=== PATIENT | female | born 1940 | race Caucasian/White ===

== ENCOUNTER 2016-09-30 11:46 | Day surgery (SDC) | payer MEDICARE, OTHER ==
[~2016-09-30 11:46] MED LIST: Acetaminophen TAB* 325 MG PO PRN; Buffered Lidocaine 1% SYRIN* 3 ML/SYR SYRINGE INTRADERM ONE; Cyclopentolate 1% OPTH.SOL* 2 ML BTL ONE; Flurbiprofen 0.03% OPTH.SOL* 2.5 ML BTL ONE; Lidocaine 1% MPF* 2 ML VIAL ONE; Neomycin/Polymy/Dex OPHTH.OIN* 3.5 GM ONE; Phenylephrine 2.5% OPTH.SOL* 2 ML BTL ONE; Povidone Iodine 5% OPTH* 30 ML BTL ONE; Tetracaine 0.5% OPTH.SOL 4 ML* 1 DROP BTL ONE; acetaZOLAMIDE TAB* 250 MG ONE
[2016-09-30] MEDS ORDERED: Midazolam* 1 MG/ML 2 ML VIAL (2 MG) ONE ×2 (13:05→13:20)
[2016-09-30] MEDS ORDERED: fentaNYL* 50 MCG/ML 2 ML VIAL (100 MCG VIAL) ONE (13:05)
[2016-09-30] MEDS ORDERED: Artificial Tear OPHTH.OINT* 3.5 GM ONE (13:46)
[2016-09-30 13:57] VITALS: BP 112/67
--- NOTE | 2016-10-01 10:00 | OP ---
OPERATIVE REPORT: DATE OF OPERATION: 09/30/16 - [facility] DATE OF : 42 SURGEON: Yoandy Parks MD ANESTHESIOLOGIST: Edu Boswell MD ANESTHESIA: Monitored anesthesia care. PRE-OP DIAGNOSIS: Cataract of the right eye. POST-OP DIAGNOSIS: Cataract of the right eye. OPERATIVE PROCEDURE: Cataract extraction of the right eye. IMPLANTS: SN60WF 13.5 diopter lens to right eye. COMPLICATIONS: None. DESCRIPTION OF PROCEDURE: The patient was given phenylephrine 2.5% and cyclopentolate 1% eye drops to the operative eye in the preoperative area. The patient was brought to the operating room where a time-out was taken to identify the correct patient, site and side of surgery. The patient's right eye was prepped and draped in the usual sterile fashion with 5% Betadine. A second time-out was taken to verify the correct patient, site and side of surgery and correct lens selection. A lid speculum was placed to the right eye. A 1-mm paracentesis blade was used to make a clear corneal incision in the superotemporal position. Preservative-free 1% lidocaine was injected into the anterior chamber. DisCoVisc was then injected into the anterior chamber. A 2.75-mm Keratome blade was used to make a triplanar incision at the inferotemporal position. A cystotome was used to initiate a capsulorrhexis, which was completed with Utrata forceps in a continuous and curvilinear manner. Hydrodissection of the lens was then performed with BSS on a cannula. The lens could be spun in the capsular bag. The phacoemulsification handpiece was then used with [id number] technique to remove the nucleus in its entirety with 13.41 CDE. The I/A handpiece was then used to remove the residual cortical material. DisCoVisc was then injected to inflate the capsular bag. The planned SN60WF 13.5 diopter lens was then injected into the capsular bag. The residual DisCoVisc was then removed from the eye with the I/A handpiece. The corneal incisions were then hydrated and no leaks occurred at physiologic pressure around 20 mmHg per palpation. A lid speculum was then removed and drapes removed. Artificial tear ointment was then placed to the surface of the operative eye. An adhesive patch and shield were then placed on the operative eye. The patient was taken to the postoperative area in stable condition. [id number]/[facility] #: [id number] STEPHANIE
== END 2016-09-30 14:05 | disposition home or self-care (01) ==
LOC: OREAST 11:46
PROVIDERS: ATTEND Student in an Organized Health Care Education/Training Program
DX: H25.11 Age-related nuclear cataract, right eye (principal); I10 Essential (primary) hypertension; J45.20 Mild intermittent asthma, uncomplicated; Z79.51 Long term (current) use of inhaled steroids; Z79.899 Other long term (current) drug therapy
CPT/HCPCS: J2250; J3010; V2632

== ENCOUNTER 2016-10-14 06:44 | Day surgery (SDC) | payer MEDICARE, OTHER ==
[~2016-10-14 06:44] MED LIST changes: -Cyclopentolate 1% OPTH.SOL* 2 ML BTL ONE; -Flurbiprofen 0.03% OPTH.SOL* 2.5 ML BTL ONE; -Lidocaine 1% MPF* 2 ML VIAL ONE; -Neomycin/Polymy/Dex OPHTH.OIN* 3.5 GM ONE; -Phenylephrine 2.5% OPTH.SOL* 2 ML BTL ONE; -Povidone Iodine 5% OPTH* 30 ML BTL ONE; -Tetracaine 0.5% OPTH.SOL 4 ML* 1 DROP BTL ONE; -acetaZOLAMIDE TAB* 250 MG ONE
[2016-10-14] MEDS ORDERED: Midazolam* 1 MG/ML 2 ML VIAL (2 MG) ONE (07:28)
[2016-10-14] MEDS ORDERED: fentaNYL* 50 MCG/ML 2 ML VIAL (100 MCG VIAL) ONE (07:36)
[2016-10-14] MEDS ORDERED: Artificial Tears* 15 ML BTL ONE (08:00)
[2016-10-14] MEDS ORDERED: Artificial Tear OPHTH.OINT* 3.5 GM ONE ×2 (08:03→15:19)
[2016-10-14 08:44] VITALS: BP 129/73
[2016-10-14] MEDS ORDERED: Neomycin/Polymy/Dex OPHTH.OIN* 3.5 GM ONE (14:46)
[2016-10-14] MEDS ORDERED: Cyclopentolate 1% OPTH.SOL* 2 ML BTL ONE (14:46)
[2016-10-14] MEDS ORDERED: Flurbiprofen 0.03% OPTH.SOL* 2.5 ML BTL ONE (14:46)
[2016-10-14] MEDS ORDERED: Tropicamide 1% OPTH.SOL* BTL ONE (14:46)
[2016-10-14] MEDS ORDERED: Phenylephrine 2.5% OPTH.SOL* 2 ML BTL ONE (14:46)
[2016-10-14] MEDS ORDERED: Lidocaine 1% MPF* 2 ML VIAL ONE (14:46)
[2016-10-14] MEDS ORDERED: acetaZOLAMIDE TAB* 250 MG ONE (14:46)
[2016-10-14] MEDS ORDERED: Tetracaine 0.5% OPTH.SOL 4 ML* 1 DROP BTL ONE (14:46)
[2016-10-14] MEDS ORDERED: Povidone Iodine 5% OPTH* 30 ML BTL ONE (14:46)
--- NOTE | 2016-10-15 01:24 | OP ---
DATE OF OPERATION: 10/14/16 - [facility] DATE OF : 42 SURGEON: Yoandy Parks MD ANESTHESIOLOGIST: Dr. Frias ANESTHESIA: Monitored anesthesia care. PRE-OP DIAGNOSIS: Cataract, left eye. POST-OP DIAGNOSIS: Cataract, left eye with floppy iris syndrome. OPERATIVE PROCEDURE: Cataract extraction, left eye. IMPLANTS: SN60WF 13.5 diopter lens to the left eye. COMPLICATIONS: None. DESCRIPTION OF PROCEDURE: The patient was given phenylephrine 2.5% and cyclopentolate 1% eye drops to the operative eye in the preoperative area. The patient was brought to the operating room, where a time-out was taken to identify the correct patient, site and side of surgery. The patient's left eye was prepped and draped in the usual sterile fashion with 5% Betadine. A second time-out was taken to verify the correct patient, site and side of surgery, and correct lens selection. A lid speculum was placed in the left eye. A 1-mm paracentesis blade was used to make a clear corneal incision in the inferotemporal position. Preservative-free 1% lidocaine was injected into the anterior chamber. DisCoVisc was injected into the anterior chamber. A Malyugin ring was inserted for mechanical pupillary dilation due to poor pupillary dilation. A 2.75-mm keratome blade was used to make a triplanar incision at the superotemporal position. A cystotome was used to initiate a capsulorrhexis which was completed with Utrata forceps in a continuous and curvilinear manner. Hydrodissection of the lens was then performed with BSS on a cannula. The lens could be spun in the capsular bag. Phacoemulsification handpiece was then used with a divide and conquer technique to remove the nucleus in its entirety with 18.95 CDE. The I/A handpiece was then used to remove the residual cortical lens material. DisCoVisc was then injected to inflate the capsular bag. The planned SN60WF 13.5 diopter lens was then injected in the capsular bag. The Malyugin ring was then removed using a Huggins technique. The residual DisCoVisc was then removed from the eye with the I/A handpiece. The corneal incisions were then hydrated and no leaks occurred at physiologic pressure around 20 mmHg per palpation. The lid speculum was then removed and drapes removed. Preservative-free artificial tear ointment was then placed on the surface of the operative eye. An adhesive patch and shield were then placed in the operative eye. The patient was taken to the postoperative area in stable condition. [id number]/[facility] #: [id number] MTDD
== END 2016-10-14 08:54 | disposition home or self-care (01) ==
LOC: OREAST 06:44
PROVIDERS: ATTEND Student in an Organized Health Care Education/Training Program
DX: H25.12 Age-related nuclear cataract, left eye (principal); H21.81 Floppy iris syndrome; I10 Essential (primary) hypertension; J45.909 Unspecified asthma, uncomplicated; E78.5 Hyperlipidemia, unspecified; E04.1 Nontoxic single thyroid nodule
CPT/HCPCS: A9270-GY; J2250; J3010; V2632

== ENCOUNTER 2017-05-19 10:36 | Emergency (ER) | payer MEDICARE, OTHER ==
[2017-05-19 11:23] VITALS: BP 151/62
--- NOTE | 2017-05-19 11:51 | UC ---
Respiratory Complaint HPI - HPI Summary HPI Summary: 76 y/o female presents to the urgent c/o productive cough, mild wheezing for the past week. Pt reports she was at her PCP Dr Moore on and Dx with URI and she feels worse. She wa Rx Robiussin AC and it is not improving her symptoms. She requests ABX. Pt sttes mild fever at home. Pt denies SOB, chest pain, abdominal pain, Urinary symptoms, N/V/D - History of Current Complaint Chief Complaint: UCRespiratory Stated Complaint: RESP ISSUE Time Seen by Provider: 05/19/17 11:49 Hx Obtained From: Patient ?: No Onset/Duration: Gradual Onset, Lasting Weeks - 1 week, Worse Since - yesterday Timing: Intermittent Episodes Severity Initially: Mild Severity Currently: Moderate Pain Intensity: 0 Pain Scale Used: 0-10 Numeric Character: Cough: Productive, Sputum Description: - green Aggravating Factors: Deep Breaths, Recumbent Position Alleviating Factors: OTC Meds Associated Signs And Symptoms: Positive: Fever, Chills, URI, Nasal Congestion, Sinus Discomfort - Risk Factors Pulmonary Embolism Risk Factors: Negative Cardiac Risk Factors: Hypertension Pseudomonas Risk Factors: Negative Tuberculosis Risk Factors: Negative - Allergies/Home Medications Allergies/Adverse Reactions: Allergies Allergy/AdvReac Type Severity Reaction Status Date / Time Sulfa Drugs Allergy Severe Hives Verified 05/19/17 11:23 PMH/Surg Hx/FS Hx/Imm Hx Previously Healthy: Yes Cardiovascular History: Hypertension - Surgical History Surgical History: Yes Surgery Procedure, Year, and Place: lump from breast; arm & back cyst/skin lesion removed (benign); D&C - Family History Known Family History: Positive: Diabetes - Social History Occupation: Retired Lives: With Family Alcohol Use: None Substance Use Type: None Smoking Status (MU): Never Smoked Tobacco Review of Systems Constitutional: Fever - subjective at home, Chills Skin: Negative Eyes: Negative ENT: Nasal Discharge, Sinus Congestion, Sinus Pain/Tenderness Respiratory: Shortness Of Breath, Cough Cardiovascular: Negative Gastrointestinal: Negative Genitourinary: Negative Motor: Negative Neurovascular: Negative Musculoskeletal: Negative Neurological: Negative Psychological: Negative Is Patient Immunocompromised?: No All Other Systems Reviewed And Are Negative: Yes Physical Exam Triage Information Reviewed: Yes Vital Signs: Initial Vital Signs Temp 97.3 F 05/19/17 11:19 Pulse 68 05/19/17 11:19 Resp 18 05/19/17 11:19 BP 151/62 05/19/17 11:19 Pulse Ox 98 05/19/17 11:19 - Additional Comments Vital Signs Reviewed: Yes General: well developed, well nourished female sitting in the examining table w/ o any apparent distress Eyes: Positive: Conjunctiva Clear - PERRLA, EOMI, fundi grossly normal ENT: Positive: Normal ENT inspection, Hearing grossly normal, Pharynx normal, Nasal congestion - edematous and erythematous nasal mucosa, Nasal drainage - yellowish drainage, TMs normal. Negative: Tonsillar swelling, Tonsillar exudate Neck: Positive: Supple, Nontender, No Lymphadenopathy Respiratory: no orthopnea or dyspnea. Able to speak in full sentences, no retractions or accessory muscle use, no tripod position, stridor, or head bobbing. Left posterior upper lung with scattered rhonchi. no wheezing or rales. Cardiovascular: Positive: RRR, No Murmur, Pulses Normal, Brisk Capillary Refill Abdomen Description: Positive: Nontender, No Organomegaly, Soft. Negative: CVA Tenderness (R), CVA Tenderness (L) Bowel Sounds: Positive: Present Musculoskeletal Exam: Normal Musculoskeletal: Positive: Strength Intact, ROM Intact, No Edema Neurological Exam: Normal Psychological Exam: Normal Skin Exam: Normal UC Diagnostic Evaluation - Laboratory O2 Sat by Pulse Oximetry: 98 Respiratory Course/Dx - Course Course Of Treatment: 76 y/o female presents to the urgent c/o productive cough, mild wheezing for the past week. Pt reports she was at her PCP Dr Moore on and Dx with URI and she feels worse. She wa Rx Robiussin AC and it is not improving her symptoms. She requests ABX. Pt sttes mild fever at home. Pt denies SOB, chest pain, abdominal pain, Urinary symptoms, N/V/D. Hx obtained. Pt with scattered rhonchi on left posterior lung and moderates nasal congestion ans sinus tenderness on examination. Pt declined chest X-ray to r/o Pneumonia. Pt Rx Z-dorys PO and Flonase to alleviate symptoms. Pt advised to increase fluid intake and eat well continue with Robitussin AC for cough. Her BP is elevated today. Hx of HTn. Advised to decrease salt in her diet and monitor BP. if not improvement or worsening of symptoms to f/u with PCP for further management. pt understood and agreed with plan of care. Pt understood and agreed with D/C instructions - Differential Dx/Diagnosis Differential Diagnosis/HQI/PQRI: Asthma, Bronchitis, Exacerbation Of COPD, Influenza, Laryngitis, Lower Resp Infection, Sinusitis Provider Diagnoses: 1-Acute bronchitis. 2-Uncontrolled HTN Discharge - Discharge Plan Condition: Stable Disposition: HOME Prescriptions: Azithromyxin DORYS (NF) [Z-Dorys (Zithromax) 250 mg tabs #6] 2 tab PO .TODAY, THEN 1 DAILY #6 tab Fluticasone NASAL SPRAY 50MCG* [Flonase NASAL SPRAY 50MCG*] 2 spray BOTH NARES DAILY #1 btl Patient Education Materials: Acute Bronchitis (ED), Low Sodium Diet (ED) Referrals: Jairon Moore MD [Primary Care Provider] - 3 Days Additional Instructions: 1-Please take full course of antibiotic to avoid resistance. 2-Continue taking Robitussin PO tabs as directed and use the albuterol inhaler to alleviate cough. Increase fluid intake, rest and eat well. 3- If symptoms do not improve or worsen or your develop SOB with fever and severe wheezing please go immediately to the ER further evaluation and treatment. 4- F/u with your PCP in 2-3 days for further management if not improvement 5-Your BP is elevated today please decrease salt in your diet, monitor your BP and if it continued to be elevated please f/u with PCP for further management
== END 2017-05-19 12:18 | disposition home or self-care (01) ==
LOC: UCEAST 10:36
DX: J20.9 Acute bronchitis, unspecified (principal); I10 Essential (primary) hypertension; Z88.2 Allergy status to sulfonamides
CPT/HCPCS: 99212; G0463

== ENCOUNTER 2017-08-01 11:03 | Emergency (ER) | payer MEDICARE, OTHER ==
[2017-08-01 11:18] VITALS: BP 137/72
--- NOTE | 2017-08-01 11:37 | UC ---
Respiratory Complaint HPI - HPI Summary HPI Summary: PT WAS TREATED FOR PRESUMPTIVE FLU WITH TAMILFU. IS ON LAST DAY TODAY. PT HERE WITH PERSISTENT HARSH OCCASIONALLY PRODUCTIVE COUGH. NOT WHEEZY BUT SOMETIMES HAS FITS OF COUGHING THAT LEAVE HER FEELING SOB. REPORTS A H/O CHRONIC BRONCHITIS. STATES HER OTHER FLU SX HAVE ALL IMPROVED - NO MORE FEVER, NAUSEA OR ACHES. - History of Current Complaint Chief Complaint: UCRespiratory Stated Complaint: COUGH Time Seen by Provider: 08/01/17 11:24 Hx Obtained From: Patient Onset/Duration: Gradual Onset, Lasting Days, Still Present Timing: Constant Severity Initially: Moderate Severity Currently: Moderate Pain Intensity: 0 Pain Scale Used: 0-10 Numeric Character: Cough: Productive Aggravating Factors: Nothing Alleviating Factors: Nothing Associated Signs And Symptoms: Negative: Dyspnea, Fever, Chills, Wheezing, Nasal Congestion - Allergies/Home Medications Allergies/Adverse Reactions: Allergies Allergy/AdvReac Type Severity Reaction Status Date / Time Sulfa (Sulfonamide Allergy Hives Verified 08/01/17 11:13 Antibiotics) PMH/Surg Hx/FS Hx/Imm Hx Cardiovascular History: Hypertension Respiratory History: Bronchitis - Surgical History Surgical History: Yes Surgery Procedure, Year, and Place: lump from breast; arm & back cyst/skin lesion removed (benign); D&C - Family History Known Family History: Positive: Hypertension, Diabetes - Social History Alcohol Use: None Substance Use Type: None Smoking Status (MU): Never Smoked Tobacco Review of Systems Constitutional: Negative ENT: Negative Respiratory: Cough Cardiovascular: Negative Gastrointestinal: Negative All Other Systems Reviewed And Are Negative: Yes Physical Exam Triage Information Reviewed: Yes Appearance: Well-Appearing, No Pain Distress, Well-Nourished Vital Signs: Initial Vital Signs Temp 97.1 F 08/01/17 11:15 Pulse 68 08/01/17 11:15 Resp 16 08/01/17 11:15 BP 137/72 08/01/17 11:15 Pulse Ox 98 08/01/17 11:15 Vital Signs Reviewed: Yes Eyes: Positive: Conjunctiva Clear ENT: Positive: Hearing grossly normal, Pharynx normal, TMs normal Neck: Positive: Supple, Nontender, No Lymphadenopathy Respiratory: Positive: Lungs clear, Normal breath sounds, No respiratory distress, No accessory muscle use, Other: - RECURRENT HACKING COUGH DURING ENCOUNTER. Negative: Crackles, Wheezing Cardiovascular Exam: Normal Abdomen Description: Positive: Soft Musculoskeletal: Positive: No Edema Neurological: Positive: Alert Psychological: Positive: Age Appropriate Behavior Skin: Negative: rashes UC Diagnostic Evaluation - Laboratory O2 Sat by Pulse Oximetry: 98 Respiratory Course/Dx - Differential Dx/Diagnosis Provider Diagnoses: ACUTE BRONCHITIS Discharge - Discharge Plan Condition: Stable Disposition: HOME Prescriptions: Azithromyxin DORYS (NF) [Z-Dorys (Zithromax) 250 mg tabs #6] 2 tab PO .TODAY, THEN 1 DAILY #6 tab Codeine Phosphate/Guaifenesin [Codeine-Guaifen 10-100 mg/5 ml] 5 - 10 ml PO Q6H PRN #150 ml MDD 40ML PRN Reason: Cough Patient Education Materials: Acute Bronchitis (ED) Referrals: Jairon Moore MD [Primary Care Provider] - If Needed Additional Instructions: GIVEN YOUR H/O CHRONIC BRONCHITIS AND RECENT DIAGNOSIS OF FLU, WILL TREAT FOR POSSIBLE SECONDARY BACTERIAL INFECTION. ALSO CONSIDER THE POSSIBILITY OF POST INFECTIOUS COUGH THAT MAY LINGER FOR WEEKS AFTER YOU RECOVER FROM A RESPIRATORY INFECTION AND IS DUE TO AIRWAY HYPERREACTIVITY DUE TO RECENT ILLNESS. FOLLOW-UP WITH YOUR PCP IF YOU ARE NOT IMPROVING EXPECTED.
== END 2017-08-01 11:55 | disposition home or self-care (01) ==
LOC: UCEAST 11:03
DX: J20.9 Acute bronchitis, unspecified (principal); I10 Essential (primary) hypertension; Z88.2 Allergy status to sulfonamides
CPT/HCPCS: 99212; G0463

== ENCOUNTER 2018-02-19 19:01 | Emergency (ER) | payer MEDICARE, OTHER ==
[2018-02-19 19:21] VITALS: BP 141/82
--- NOTE | 2018-02-19 19:32 | UC ---
Knee Pain HPI - HPI Summary HPI Summary: 77 yo female presents accompanied by her friend with complaints of LEFT knee pain. She tells me that about a month ago her pain began, but has worsened since. She tells me that she saw her PCP, Dr. Ennis, about a week ago and an XR was performed and was normal - per pt. Today pt woke with worse pain that has persisted throughout the day with ambulation. Her pain is minimal if she elevated and puts a pillow under her knee. The pain is located behind the knee and radiates into her calf. She denies injury, numbness, tingling, recent travel , hx of cancer or blood clot. - History of Current Complaint Chief Complaint: UCLowerExtremity Stated Complaint: KNEE PAIN Time Seen by Provider: 02/19/18 19:29 Hx Obtained From: Patient Hx Last Menstrual Period: na Severity Initially: Moderate Severity Currently: Severe Pain Intensity: 9 Pain Scale Used: 0-10 Numeric - Allergies/Home Medications Allergies/Adverse Reactions: Allergies Allergy/AdvReac Type Severity Reaction Status Date / Time Sulfa (Sulfonamide Allergy Hives Verified 02/19/18 19:21 Antibiotics) PMH/Surg Hx/FS Hx/Imm Hx - Additional Past Medical History Additional PMH: Seasonal allergies Cardiovascular History: Hypertension - Surgical History Surgical History: Yes Surgery Procedure, Year, and Place: lump from breast; arm & back cyst/skin lesion removed (benign); D&C - Family History Known Family History: Positive: None, Hypertension, Diabetes - Social History Occupation: Retired Lives: Alone Alcohol Use: None Substance Use Type: None Smoking Status (MU): Never Smoked Tobacco Review of Systems Constitutional: Negative Skin: Negative Respiratory: Negative Cardiovascular: Negative Neurovascular: Negative Musculoskeletal: Other: - Left knee pain Neurological: Negative Psychological: Negative All Other Systems Reviewed And Are Negative: Yes Physical Exam - Summary Physical Exam Summary: GENERAL: NAD. WDWN. No pain distress. SKIN: No rashes, sores, lesions, or open wounds. CHEST: No accessory muscle use. Breathing comfortably and in no distress. CV: . Pulses intact popliteal, PT, and DP. Cap refill <2seconds MSK: LEFT knee: Moderate TTP posterior knee joint. FROM. Strength 5/5. No edema or obvious bony deformities. No patella apprehension. Negative Mirtha, A/P drawer, Alaina, and varus/valgus stress. No calf pain or edema. Negative jacqueline 's sign. No lagunas's cyst appreciated. NEURO: Alert. Sensations intact and symmetric B/L LEs PSYCH: Age appropriate behavior. Triage Information Reviewed: Yes Vital Signs: Initial Vital Signs Temp 98.0 F 02/19/18 19:16 Pulse 64 02/19/18 19:16 Resp 18 02/19/18 19:16 BP 141/82 02/19/18 19:16 Pulse Ox 98 02/19/18 19:16 Vital Signs Reviewed: Yes Knee Pain Course/Dx - Course Course Of Treatment: No XR performed today as pain has been going on for about a month and pt had a negative XR about a week ago without new injury. I suspect she may have a lagunas's cyst, a ruptured cyst, or pain due to arthritis. She cannot take NSAIDs due to her HTN, therefore we discussed potential medication options in addition to an Orthopedic referral. She elected to try Tylenol #3. Advised to RICE and f/u with Orthopedics as soon as possible - Differential Dx/Diagnosis Provider Diagnoses: Left knee pain Discharge - Sign-Out/Discharge Documenting (check all that apply): Patient Departure All imaging exams completed and their final reports reviewed: No Studies - Discharge Plan Condition: Stable Disposition: HOME Prescriptions: Acetaminophen with Codeine [Acetaminophen/Codeine Evelin 300-30 mg] 1 tab PO BID PRN #8 tab MDD 2 PRN Reason: Pain Patient Education Materials: Acetaminophen/Codeine (By mouth), Bakers Cyst (ED) Referrals: Kia Martinez MD [Primary Care Provider] - Sully Ellis MD [Medical Doctor] - As Soon As Possible Additional Instructions: If you develop a fever, shortness of breath, chest pain, new or worsening symptoms - please call your PCP or go to the ED. Your blood pressure was mildly elevated at todays visit. Please see your primary provider within 4 weeks for recheck and re-evaluation. 1) Rest, Ice, and elevate your knee as much as possible 2) Please call Orthopedics at the number below to schedule a follow up appointment as soon as possible - Billing Disposition and Condition Condition: STABLE Disposition: Home - Attestation Statements Provider Attestation: Per institutional requirements, I have reviewed the chart, however, I was not consulted specifically or made aware of this patient by the midlevel provider. I did not personally evaluate, interact with , or disposition this patient
== END 2018-02-19 20:05 | disposition home or self-care (01) ==
LOC: UCEAST 19:01
DX: M25.562 Pain in left knee (principal); Z88.2 Allergy status to sulfonamides
CPT/HCPCS: 99212; G0463

== ENCOUNTER 2019-06-12 08:00 | Emergency (ER) | payer MEDICARE, OTHER ==
--- OUTSIDE RECORDS SUMMARY | 2019-06-12 08:05 | XMS REPORT | Continuity of Care Document ---
:1940 External Reference #:[id number] Author Name Romie Pack MD Address [address] [place] [address] Problems Active Problems Provider Date Impaired fasting glycaemia Onset: 11/04/2018 Chronic kidney disease Onset: 11/04/2018 Essential hypertension Onset: 08/18/2018 Osteoarthritis of left knee joint Onset: 01/26/2018 Multinodular goiter Onset: 01/26/2018 Hypertensive disorder Onset: 01/26/2018 Inactive Problems Benign essential hypertension Onset: 01/29/2019 Inactive: 01/29/2019 Body mass index 25-29 - overweight Onset: 01/29/2019 Inactive: 01/29/2019 Adult health examination Onset: 01/29/2019 Inactive: 01/29/2019 Social History Type Date Description Comments Sex Unknown Allergies, Adverse Reactions, Alerts Active Allergies Reaction Severity Comments Date Sulfa No Reaction Indicated 02/19/2019 Medications Active Medications SIG Qnty Indications Ordering Date Provider Atorvastatin Calcium 1 daily oral 90tabs BOBBY Omer 01/29/2019 20mg Tablets Proair HFA 2 puffs every 6 8.5units Magali Wineholt, 02/17/2018 hours inhalation 108(90Base) mcg/Act Aerosol Amlodipine Besylate 1 daily oral 90tabs Magali Wineholt, 02/17/2018 MD 2.5mg Tablets Flovent HFA 2 puffs twice 10.6units Magali Wineholt, 02/17/2018 44mcg/Act daily inhalation MD Aerosol Lisinopril-Hydrochlo 1 daily oral 90tabs Magali Wineholt, 02/17/2018 rothiazide 20-12.5mg Tablets Glucosamine 1 twice each day 60caps Magali Wineholt, 01/26/2018 500mg oral MD Capsules Medications Administered in Office Medication SIG Qnty Indications Ordering Provider Date TB Intradermal Test Unknown 02/02/2018 Injection Immunizations CPT Code Status Date Vaccine Lot # [id number] Given 03/19/2019 Flu High Dose [id number] 83150 Given 03/30/2018 Influenza Virus Vaccine, Quadrivalent, Split, Im Use 0.25ML 18840 Given 03/30/2018 Influenza Virus Vaccine, Quadrivalent, Split, Im Use 0.25ML 29426 Given 03/30/2018 Influenza Virus Vaccine, Quadrivalent, Split, Im Use 0.25ML 76885 Given 03/30/2018 Flu < 65 years 29684 Given 03/30/2018 Influenza Virus Vaccine, Quadrivalent, Split, Preservative Free 87167 Given 03/30/2018 Flumist 72586 Given 03/30/2018 Flu High Dose 82553 Given 03/30/2018 Influenza Virus Vaccine, Split, Preserv Free, Intradermal Use 18246 Given 08/06/2017 Tdap - Boostrix/Adacel 49603 Given 08/06/2017 Tdap - Boostrix/Adacel 94220 Given 08/06/2017 Tdap - Boostrix/Adacel 54202 Given 05/27/2016 Influenza Virus Vaccine, Split, Preserv Free, Intradermal Use 04679 Given 05/27/2016 Flu High Dose 82445 Given 05/27/2016 Flumist 99417 Given 05/27/2016 Influenza Virus Vaccine, Quadrivalent, Split, Preservative Free 91624 Given 05/27/2016 Flu < 65 years 26999 Given 05/27/2016 Influenza Virus Vaccine, Quadrivalent, Split, Im Use 0.25ML 57795 Given 05/27/2016 Influenza Virus Vaccine, Quadrivalent, Split, Im Use 0.25ML 01602 Given 05/27/2016 Influenza Virus Vaccine, Quadrivalent, Split, Im Use 0.25ML 63508 Given 12/07/2015 Prevnar 13 71799 Given 10/17/2014 Pneumovax - for >=2years - PPSV23 30292 Given 03/10/2014 Influenza Virus Vaccine, Split, Preserv Free, Intradermal Use 17726 Given 03/10/2014 Flu High Dose 29327 Given 03/10/2014 Flumist 89898 Given 03/10/2014 Influenza Virus Vaccine, Quadrivalent, Split, Preservative Free 36765 Given 03/10/2014 Flu < 65 years 52290 Given 03/10/2014 Influenza Virus Vaccine, Quadrivalent, Split, Im Use 0.25ML 06747 Given 03/10/2014 Influenza Virus Vaccine, Quadrivalent, Split, Im Use 0.25ML 88309 Given 03/10/2014 Influenza Virus Vaccine, Quadrivalent, Split, Im Use 0.25ML 40571 Given 04/03/2010 Influenza Virus Vaccine, Quadrivalent, Split, Im Use 0.25ML 18658 Given 04/03/2010 Influenza Virus Vaccine, Quadrivalent, Split, Im Use 0.25ML 10410 Given 04/03/2010 Influenza Virus Vaccine, Quadrivalent, Split, Im Use 0.25ML 07269 Given 04/03/2010 Flu < 65 years 67365 Given 04/03/2010 Influenza Virus Vaccine, Quadrivalent, Split, Preservative Free 87873 Given 04/03/2010 Flumist 21021 Given 04/03/2010 Flu High Dose 18183 Given 04/03/2010 Influenza Virus Vaccine, Split, Preserv Free, Intradermal Use 38864 Given 07/22/2007 Pneumovax - for >=2years - PPSV23 Vital Signs Date Vital Result Comment 05/07/2019 3:58pm Height 66.75 inches 5'6.75" Weight 190.00 lb Heart Rate 84 /min Body Temperature 98.2 F O2 % BldC Oximetry 97 % BMI (Body Mass Index) 30.0 kg/m2 01/29/2019 10:46am BP Systolic 140 mmHg Weight 187.00 lb Heart Rate 72 /min Body Temperature 97.7 F O2 % BldC Oximetry 96 % Results Test Acquired Facility Test Result H/L Range Note Date Creat, Ur Random 01/29/2019 N2N/CCD Import Creat, Ur Random 100 _ Microalb/CR Ratio 01/29/2019 N2N/CCD Import Microalb/CR Ratio <30 Microalbumin, Ur 01/29/2019 N2N/CCD Import Microalbumin, Ur 10 _ Microalbumin 01/29/2019 N2N/CCD Import Microalbumin Normal Interpretation Interpretation Mily 01/29/2019 N2N/CCD Import Mily 01/29/19 Procedures Date Code Description Status 05/07/2019 31836 Electrocardiogram Complete Completed Medical Devices Description No Information Available Encounters Type Date Location Provider Dx Diagnosis Office Visit 05/07/2019 [facility] Romie Pack MD Z01.818 Encounter for other 3:45p preprocedural examination M79.642 Pain in left hand R94.31 Abnormal electrocardiogram [ECG] [EKG] Assessments Date Code Description Provider 05/07/2019 Z01.818 Encounter for other preprocedural examination Romie Pack MD 05/07/2019 M79.642 Pain in left hand Romie Pack MD 05/07/2019 R94.31 Abnormal electrocardiogram [ECG] [EKG] Romie Pack MD 03/19/2019 Z23 Encounter for immunization Magali Granda MD Plan of Treatment No Information Available Functional Status Description No Information Available Mental Status Description No Information Available Referrals Refer to Reason for Referral Status Appt Date Dianna Boswell Preop for L hand surgery, general anesthesia, EKG Created 00 with poss inferior infarct Surgery scheduled for May 18 but will likely be rescheduled bc not urgent [address], [place] [address] [phone]
--- OUTSIDE RECORDS SUMMARY | 2019-06-12 08:05 | XMS REPORT | Continuity of Care Document ---
:1940 External Reference #:[id number] Author Name Marquis Kraus DO FACC (transmitted by agent of provider Tigist Saez) Address [address] [place] [address] Care Team Providers Name Role Phone Magali Granda M.D. - Family Care Team Information Oyster Preparer [phone] Medicine Problems Active Problems Provider Date Mild intermittent asthma Jairon Moore M.D.,FACP Onset: 06/26/2015 Note: confirmed on PFTs. Essential hypertension Jairon Moore M.D.,FACP Onset: 06/28/2009 Chronic allergic conjunctivitis Varsha Rodgers, N.P. Onset: 11/06/2011 Mixed hyperlipidemia Rosemary Diaz, N.P. Onset: 08/31/2013 Polyp of corpus uteri Jairon Moore M.D.,FACP Onset: 12/07/2015 Note: has IUD to suppress Thyroid nodule Jairon Moore M.D.,FACP Onset: 01/03/2016 Note: RT neg bx Dr. Stone 2015 Current tear of medial cartilage AND/OR meniscus Sully Ellis M.D. Onset: of knee Localized, primary osteoarthritis Sully Ellis M.D. Onset: 02/23/2018 Social History Type Date Description Comments Sex Unknown Tobacco Use Start: Unknown Never Smoked Cigarettes ETOH Use 12/18/2016 Denies alcohol use Recreational Drug Use Denies Drug Use Tobacco Use Start: Unknown Patient has never smoked Smoking Status Reviewed: 05/27/19 Patient has never smoked Exercise Type/Frequency Does not exercise Allergies, Adverse Reactions, Alerts Active Allergies Reaction Severity Comments Date Sulfa Antibiotics 08/13/2012 Medications Active Medications SIG Qnty Indications Ordering Date Provider Amlodipine Besylate 1 by mouth every 90tabs I10 Jairon Nieves 12/23/2017 day Zulma Moore,DALLINP 2.5mg Tablets Fluticasone 1 act each nostril 16gm Other Ordering 08/06/2017 Propionate twice daily Provider 50mcg/Act Suspension Guaifenesin-Codeine take 10 118ml R05 Jimmy Wrightk, 08/06/2017 milliliters by CRAWLER TRACTOR OPERATOR 100-10mg/5ML mouth every Solution evening with plenty of water as needed for cough for 7 days as needed Triamcinolone apply every day as 80gm Jairon Nieves 12/18/2016 Acetonide needed Zulma Moore,KRISTY 0.1% Cream Flovent HFA 2 puffs twice a 10.600gm R05 Jimmy Luis, 12/07/2015 44mcg/Act day CRAWLER TRACTOR OPERATOR Aerosol J45.41 Proair HFA 2 puffs by mouth 1units J20.9 Matthiascinthia Luis, CRAWLER TRACTOR OPERATOR 04/07/2015 108(90Base) every 4 hours as mcg/Act Aerosol needed J45.41 Lisinopril-Hydrochlorothiazide take 1 90tabs Jairon Nieves 11/05/2012 20-12.5mg Tablets tablet by Zulma oMore,FACP mouth once daily Flaxseed Oil [place]-3 1 cap po qd Jairon Nieves 08/02/2011 1000mg Capsules Zulma Moore,FACP Meclizine HCL 1 po every 8 270tabs Unknown 25mg Tablets hrs prn Zyrtec Allergy 1 by mouth Unknown 10mg Tablets every day Fish Oil 1000mg 2 by mouth Unknown Capsules DR twice a day Radha-C Tablets daily Unknown Glucosamine 500mg 2 caps by Unknown Capsules mouth three times a day Atorvastatin Calcium take 1 Unknown 20mg Tablets tablet by mouth once daily Medications Administered in Office Medication SIG Qnty Indications Ordering Provider Date Celestone 3 mg and 3mg Prabhakar St MD 03/24/2019 Injection Hyaluron Or Sully Ellis M.D. 08/21/2018 Derivative,Orthovisc,For Intra-Articular Inj Per Dose Injection Hyaluron Or Sully Ellis M.D. 08/14/2018 Monisha,Orthovisc,For Intra-Articular Inj Per Dose Injection Hyaluron Or Sully Ellis M.D. 08/07/2018 Derivative,Orthovisc,For Intra-Articular Inj Per Dose Injection Depomedrol 40MG Sully Ellis M.D. 02/23/2018 Injection PPD Rosemary Diaz N.P. 08/02/2011 Injection Influenza Virus Vaccine Unknown 06/16/2011 Injection Immunizations CPT Code Status Date Vaccine Reaction Lot # [id number] Given 08/06/2017 Tdap - [id number] Tetanus/Diptheria/Acellular Pertussis 69841 Given 03/27/2016 Influ Virus Vaccine, Quadrivalent, Split Virus, [place] [address] Given 12/07/2015 Pneumococcal Conjugate Vaccine [id number] 13 Valent For Intramuscular Use 48638 Given 03/30/2015 Flu Vaccine Split Virus Preservative Free For Indiv 3Yr Older 76892 Given 10/17/2014 Pneumonia Vaccine no reaction noted [id number] 59881 Given 03/10/2014 Influenza Virus Vaccine, [id number] Quadrivalent, Split, Preservative Free 03264 Given 04/29/2013 Flu Vaccine Split Virus [id number] Preservative Free For Indiv 3Yr Older 80297 Given 04/03/2010 Influenza Virus 3Yrs & Over [id number] 53938 Given 05/04/2008 Influenza Virus 3Yrs & Over 22840 Given 05/04/2008 Influenza Virus 3Yrs & Over 10055 26682 Given 07/22/2007 Pneumovax (History By Patient) 12956 Given 05/22/2007 Influenza Virus 3Yrs & Over 95331 Given 05/22/2007 Influenza Virus 3Yrs & Over 75951 Refused 12/20/2014 Tdap - Tetanus/Diptheria/Acellular Pertussis Vital Signs Date Vital Result Comment 05/27/2019 4:03pm Height 68 inches 5'8" Weight 189.00 lb with shoes BP Systolic 144 mmHg Rue reg cuff BP Diastolic 82 mmHg Rue reg cuff BP Systolic Sitting 138 mmHg Lue reg cuff BP Diastolic Sitting 80 mmHg Lue reg cuff BP Systolic Standing 142 mmHg Lue reg cuff BP Diastolic Standing 76 mmHg Lue reg cuff Respiratory Rate 16 /min BMI (Body Mass Index) 28.7 kg/m2 03/24/2019 9:47am Height 68 inches 5'8" Weight 191.25 lb Heart Rate 68 /min BP Systolic 124 mmHg BP Diastolic 66 mmHg Respiratory Rate 16 /min Body Temperature 97.4 F Pain Level 5 BMI (Body Mass Index) 29.1 kg/m2 Results Description No Information Available Procedures Date Code Description Status 05/27/2019 60385 EKG Tracing & Interpretation Completed 03/24/2019 48117 Inject/Drain Joint/Bursa Small W/O US Completed 01/15/2004 51279138 Colonoscopy Completed Medical Devices Description No Information Available Encounters Type Date Location Provider Dx Diagnosis Office Visit 05/04/[address] [facility] [address], M19.042 Primary 1:45p at [place] osteoarthritis, left hand Office Visit 03/24/[address] [facility] [address] M19.041 Primary 9:00a at [place] osteoarthritis, right hand M19.042 Primary osteoarthritis, left hand Assessments Date Code Description Provider 05/27/2019 Z01.810 Encounter for preprocedural Marquis Kraus DO [facility] cardiovascular examination 05/27/2019 R94.31 Abnormal electrocardiogram [ECG] [EKG] Marquis Kraus, DO FAC 05/27/2019 I10 Essential (primary) hypertension Marquis Kraus, DO FAC 05/27/2019 E78.5 Hyperlipidemia, unspecified Marquis Kraus, DO FAC 05/27/2019 R73.01 Impaired fasting glucose Marquis Kraus DO FACC 05/27/2019 R06.02 Shortness of breath Marquis Kraus DO FAC 05/04/2019 M19.042 Primary osteoarthritis, left hand [facility]akar [facility] MD 03/24/2019 M19.041 Primary osteoarthritis, right hand [facility]akar [facility] MD 03/24/2019 M19.042 Primary osteoarthritis, left hand [facility]abhakar [facility] MD Plan of Treatment Future Appointment(s):06/03/2019 1:00 pm - [facility] ECHO Schedule at [place] [facility]06/17/2019 11:00 am - Marquis Kraus DO FACC at [place] [facility]05/27/2019 - [facility] Encounter for preprocedural cardiovascular examinationComments:Take all of your medications as regular the night before and day of stress test including any inhalers. Bring your rescue inhaler in case you need it.Follow up:PRNR94.31 Abnormal electrocardiogram [ECG] [EKG]New Orders:Stress Test, Exercise Nuclear, Scheduled : 06/17/19I10 Essential (primary) fcrooqsefqtxH90.5 Hyperlipidemia, tcdjhylmrhzH50.01 Impaired fasting joauwjsJ41.02 Shortness of breathNew Orders: Echocardiogram, Scheduled: 06/03/19 Functional Status Description No Information Available Mental Status Description No Information Available Referrals Description No Information Available
--- OUTSIDE RECORDS SUMMARY | 2019-06-12 08:05 | XMS REPORT | Continuity of Care Document ---
:1940 External Reference #:[id number] Author Name Prabhakar St MD (transmitted by agent of provider Callie Viera) Address [address] [place] [id number] Care Team Providers Name Role Phone Magali Granda M.D. - Family Care Team Information Environmental Lawyer [phone] Medicine Problems Active Problems Provider Date Mild intermittent asthma Jairon Moore M.D.,[facility] Onset: 06/26/2015 Note: confirmed on PFTs. Essential [...] Patient has never smoked Smoking Status Reviewed: 05/04/19 Patient has never smoked Allergies, Adverse Reactions, Alerts Active Allergies Reaction Severity Comments Date Sulfa Antibiotics 08/13/2012 Medications Active Medications SIG Qnty Indications Ordering Date Provider Amlodipine Besylate 1 by mouth every 90tabs I10 Jairon Nieves 12/23/2017 day Zulma Moore,FACP 2.5mg Tablets Fluticasone 1 act each nostril 16gm Other Ordering 08/06/2017 Propionate twice daily Provider 50mcg/Act Suspension Guaifenesin-Codeine take 10 118ml R05 Jimmy Wrightk, 08/06/2017 milliliters by JOINT SEALER 100-10mg/5ML mouth every Solution evening with plenty of water as needed for cough for 7 days as needed Triamcinolone apply every day as 80gm Jairon Nieves 12/18/2016 Acetonide needed Zulma Moore,KRISTY 0.1% Cream Flovent HFA 2 puffs twice a 10.600gm R05 Sammydell Luis, 12/07/2015 44mcg/Act day JOINT SEALER Aerosol J45.41 Proair HFA 2 puffs by mouth 1units J20.9 Jimmy Smith, JOINT SEALER 04/07/2015 108(90Base) every 4 hours as mcg/Act Aerosol needed J45.41 Lisinopril-Hydrochlorothiazide take 1 90tabs Jairon Nieves 11/05/2012 20-12.5mg Tablets tablet by Zulma Moore,FACP mouth once daily Flaxseed Oil [place]-3 1 cap po qd Jairon Nieves 08/02/2011 [...] Injection Hyaluron Or Sully Ellis M.D. 08/07/2018 Monisha,Orthovisc,For Intra-Articular Inj Per Dose Injection Depomedrol 40MG Sully Ellis M.D. 02/23/2018 Injection PPD Rosemary Diaz, N.P. 08/02/2011 Injection Influenza Virus Vaccine Unknown 06/16/2011 Injection Immunizations CPT Code Status Date Vaccine Reaction Lot # [id number] Given 08/06/2017 Tdap - [id number] Tetanus/Diptheria/Acellular Pertussis 00447 Given 03/27/2016 Influ Virus Vaccine, Quadrivalent, Split Virus, [place] [address] Given 12/07/2015 Pneumococcal Conjugate Vaccine [id number] 13 Valent For Intramuscular Use 11518 Given 03/30/2015 Flu Vaccine Split Virus Preservative Free For Indiv 3Yr Older 52497 Given 10/17/2014 Pneumonia Vaccine no reaction noted [id number] 85934 Given 03/10/2014 Influenza Virus Vaccine, [id number] Quadrivalent, Split, Preservative Free 25279 Given 04/29/2013 Flu Vaccine Split Virus [id number] Preservative Free For Indiv 3Yr Older 85679 Given 04/03/2010 Influenza Virus 3Yrs & Over [id number] 26550 Given 05/04/2008 Influenza Virus 3Yrs & Over 83309 Given 05/04/2008 Influenza Virus 3Yrs & Over 60738 96505 Given 07/22/2007 Pneumovax (History By Patient) 49465 Given 05/22/2007 Influenza Virus 3Yrs & Over 61156 Given 05/22/2007 Influenza Virus 3Yrs & Over 82603 Refused 12/20/2014 Tdap - Tetanus/Diptheria/Acellular Pertussis Vital Signs Date Vital Result Comment 03/24/2019 9:47am Height 68 inches 5'8" Weight 191.25 lb Heart Rate 68 /min BP Systolic 124 mmHg BP Diastolic 66 mmHg Respiratory Rate 16 /min Body Temperature 97.4 F Pain Level 5 BMI (Body Mass Index) 29.1 kg/m2 08/21/2018 8:32am Height 68 inches 5'8" Weight 180.00 lb BP Systolic 117 mmHg BP Diastolic 69 mmHg Respiratory Rate 16 /min Pain Level 4 BMI (Body Mass Index) 27.4 kg/m2 Results Description No Information Available Procedures Date Code Description Status 03/24/2019 72104 Inject/Drain Joint/Bursa Small W/O US Completed 01/15/2004 69502068 Colonoscopy Completed Medical Devices Description No Information Available Encounters Type Date Location Provider Dx Diagnosis Office Visit 03/24/2019 [facility] [address], M19.041 Primary 9:00a at [place] osteoarthritis, right hand M19.042 Primary osteoarthritis, left hand Assessments Date Code Description Provider 05/04/2019 M19.042 Primary osteoarthritis, left hand [facility]abhakar [facility] MD 03/24/2019 M19.041 Primary osteoarthritis, right hand [facility]abhakar [facility] MD 03/24/2019 M19.042 Primary osteoarthritis, left hand Prabhakar [facility] MD Plan of Treatment 05/04/2019 - Prabhakar [facility] MDM19.042 Primary osteoarthritis, left handFollow up:Follow up: 7-10 days before surgery Functional Status Description No Information Available Mental Status Description No Information Available Referrals Description No Information Available
--- OUTSIDE RECORDS SUMMARY | 2019-06-12 08:05 | XMS REPORT | Continuity of Care Document ---
:1940 External Reference #:[id number] Author Name Aliza Ma Care Team Providers Name Role Phone Magali Granda M.D. - Family Care Team Information Market Development Specialist Medicine Problems Active Problems Provider Date Mild intermittent asthma Jairon Moore M.D.,[facility] Onset: 06/26/2015 Note: confirmed on PFTs. Essential [...] 118ml R05 Jimmy Wrightk, 08/06/2017 milliliters by FIRE PREVENTION FORESTER 100-10mg/5ML mouth every Solution evening with plenty of water as needed for cough for 7 days as needed Triamcinolone apply every day as 80gm Jairon Nieves 12/18/2016 Acetonide needed Zulma Moore,KRISTY 0.1% Cream Flovent HFA 2 puffs twice a 10.600gm R05 Jimmy Smith, 12/07/2015 44mcg/Act day FIRE PREVENTION FORESTER Aerosol J45.41 Proair HFA 2 puffs by mouth 1units J20.9 Matthiasmeghnadell Luis, FIRE PREVENTION FORESTER 04/07/2015 108(90Base) every 4 hours as mcg/Act Aerosol needed J45.41 Lisinopril-Hydrochlorothiazide take 1 90tabs Jairon Nieves 11/05/2012 20-12.5mg Tablets tablet by Zulma Moore,FACP mouth once daily Flaxseed Oil [place]-3 1 cap po qd Jairon Nieves 08/02/2011 [...] and 3mg Prabh[address]ar [facility] MD 03/24/2019 Injection Suzie Or Sully Ellis M.D. 08/21/2018 Mon[facility],For [facility]j Per Dose Injection Hyaluron Or Sully Ellis M.D. 08/14/2018 Monisha,Orthovisc,For Intra-Articular Inj Per Dose Injection Hyaluron Or Sully Ellis M.D. 08/07/2018 Derivative,Orthovisc,For Intra-Articular Inj Per Dose Injection Depomedrol 40MG Sully Ellis M.D. 02/23/2018 Injection PPD Rosemary Diaz N.Ivet 08/02/2011 Injection Influenza Virus Vaccine Unknown 06/16/2011 Injection Immunizations CPT Code Status Date Vaccine Reaction Lot # [id number] Given 08/06/2017 Tdap - [id number] Tetanus/Diptheria/Acellular Pertussis 62800 Given 03/27/2016 Influ Virus Vaccine, Quadrivalent, Split Virus, [place] [address] Given 12/07/2015 Pneumococcal Conjugate Vaccine [id number] 13 Valent For Intramuscular Use 40665 Given 03/30/2015 Flu Vaccine Split Virus Preservative Free For Indiv 3Yr Older 00600 Given 10/17/2014 Pneumonia Vaccine no reaction noted [id number] 14753 Given 03/10/2014 Influenza Virus Vaccine, [id number] Quadrivalent, Split, Preservative Free 41916 Given 04/29/2013 Flu Vaccine Split Virus [id number] Preservative Free For Indiv 3Yr Older 58500 Given 04/03/2010 Influenza Virus 3Yrs & Over [id number] 10963 Given 05/04/2008 Influenza Virus 3Yrs & Over 97876 Given 05/04/2008 Influenza Virus 3Yrs & Over 50042 29797 Given 07/22/2007 Pneumovax (History By Patient) 58015 Given 05/22/2007 Influenza Virus 3Yrs & Over 22155 Given 05/22/2007 Influenza Virus 3Yrs & Over 57769 Refused 12/20/2014 Tdap - Tetanus/Diptheria/Acellular Pertussis Vital [...] Available Procedures Date Code Description Status 03/24/2019 54406 Inject/Drain Joint/Bursa Small W/O US Completed 01/15/2004 [id number] Colonoscopy Completed Medical Devices Description No Information Available Encounters Type Date Location Provider Dx Diagnosis Office Visit 03/24/[address] [facility] [address], M19.041 Primary 9:00a at [place] osteoarthritis, right hand M19.042 Primary osteoarthritis, left hand Assessments Date Code Description Provider 05/04/2019 M19.042 Primary osteoarthritis, left hand [facility]abhakar [facility] MD 03/24/2019 M19.041 Primary osteoarthritis, right hand [facility]abhakar [facility] MD 03/24/2019 M19.042 Primary osteoarthritis, left hand [facility]abhakar [facility] MD Plan of Treatment 05/04/2019 - [facility]ab[facility], MDM19.042 Primary osteoarthritis, left handFollow up:Follow up: 7-10 days before surgery Functional Status Description No Information Available Mental Status Description No Information Available Referrals Description No Information Available
--- OUTSIDE RECORDS SUMMARY | 2019-06-12 08:05 | XMS REPORT | Continuity of Care Document ---
:1940 External Reference #:[id number] Author Name Magali Granda MD Address [address] [place] [address] Problems Active Problems Provider Date Impaired fasting [...] CPT Code Status Date Vaccine Lot # [id number] Given 03/19/2019 Flu High Dose [id number] 82844 Given 03/30/2018 Influenza Virus Vaccine, Quadrivalent, Split, Im Use 0.25ML 30146 Given 03/30/2018 Influenza Virus Vaccine, Quadrivalent, Split, Im Use 0.25ML 42494 Given 03/30/2018 Influenza Virus Vaccine, Quadrivalent, Split, Im Use 0.25ML 64915 Given 03/30/2018 Flu < 65 years 09005 Given 03/30/2018 Influenza Virus Vaccine, Quadrivalent, Split, Preservative Free 85068 Given 03/30/2018 Flumist 93270 Given 03/30/2018 Flu High Dose 40955 Given 03/30/2018 Influenza Virus Vaccine, Split, Preserv Free, Intradermal Use 05786 Given 08/06/2017 Tdap - Boostrix/Adacel 13747 Given 08/06/2017 Tdap - Boostrix/Adacel 51672 Given 08/06/2017 Tdap - Boostrix/Adacel 07253 Given 05/27/2016 Influenza Virus Vaccine, Split, Preserv Free, Intradermal Use 01015 Given 05/27/2016 Flu High Dose 36594 Given 05/27/2016 Flumist 31974 Given 05/27/2016 Influenza Virus Vaccine, Quadrivalent, Split, Preservative Free 51443 Given 05/27/2016 Flu < 65 years 66731 Given 05/27/2016 Influenza Virus Vaccine, Quadrivalent, Split, Im Use 0.25ML 54771 Given 05/27/2016 Influenza Virus Vaccine, Quadrivalent, Split, Im Use 0.25ML 32868 Given 05/27/2016 Influenza Virus Vaccine, Quadrivalent, Split, Im Use 0.25ML 28776 Given 12/07/2015 Prevnar 13 14097 Given 10/17/2014 Pneumovax - for >=2years - PPSV23 37304 Given 03/10/2014 Influenza Virus Vaccine, Split, Preserv Free, Intradermal Use 85063 Given 03/10/2014 Flu High Dose 09297 Given 03/10/2014 Flumist 17690 Given 03/10/2014 Influenza Virus Vaccine, Quadrivalent, Split, Preservative Free 02632 Given 03/10/2014 Flu < 65 years 41435 Given 03/10/2014 Influenza Virus Vaccine, Quadrivalent, Split, Im Use 0.25ML 14035 Given 03/10/2014 Influenza Virus Vaccine, Quadrivalent, Split, Im Use 0.25ML 94718 Given 03/10/2014 Influenza Virus Vaccine, Quadrivalent, Split, Im Use 0.25ML 36181 Given 04/03/2010 Influenza Virus Vaccine, Quadrivalent, Split, Im Use 0.25ML 26265 Given 04/03/2010 Influenza Virus Vaccine, Quadrivalent, Split, Im Use 0.25ML 85393 Given 04/03/2010 Influenza Virus Vaccine, Quadrivalent, Split, Im Use 0.25ML 04412 Given 04/03/2010 Flu < 65 years 67691 Given 04/03/2010 Influenza Virus Vaccine, Quadrivalent, Split, Preservative Free 20502 Given 04/03/2010 Flumist 74486 Given 04/03/2010 Flu High Dose 30732 Given 04/03/2010 Influenza Virus Vaccine, Split, Preserv Free, Intradermal Use 90467 Given 07/22/2007 Pneumovax - for >=2years - [...] BldC Oximetry 96 % Results Test Acquired Date Facility Test Result H/L Range Note CBC Auto 05/12/2019 [facility] White Blood 6.2 10^3/uL Normal 3.5-10.[address] [place], [place] [id number] [phone] Red Blood Count 4.41 10^6/uL Normal 3.70-4.87 Hemoglobin 13.6 g/dL Normal 12.0-16.0 Hematocrit 40 % Normal 35-47 Mean Corpuscular Volume 90 fL Normal 80-97 Mean Corpuscular Hemoglobin 31 pg Normal 27-31 Mean Corpuscular HGB Conc 34 g/dL Normal 31-36 Red Cell Distribution Width 13 % Normal 10-15 Platelet Count 175 10^3/uL Normal 150-450 Mean Platelet Volume 10.8 fL High 7.4-10.4 Abs Neutrophils 3.8 10^3/uL Normal 1.5-7.7 Abs Lymphocytes 1.8 10^3/uL Normal 1.0-4.8 Abs Monocytes 0.4 10^3/uL Normal 0-0.8 Abs Eosinophils 0.2 10^3/uL Normal 0-0.6 Abs Basophils 0.0 10^3/uL Normal 0-0.2 Abs Nucleated RBC 0.0 10^3/uL Granulocyte % 60.9 % Lymphocyte % 28.5 % Monocyte % 7.2 % Eosinophil % 3.1 % Basophil % 0.3 % Nucleated Red Blood Cells % 0.0 Comp Metabolic 05/12/2019 [facility] Sodium 141 mmol/L Normal 135-[address] [place] [address] [phone] Potassium 4.3 mmol/L Normal 3.5-5.0 Chloride 106 mmol/L Normal 101-111 Co2 Carbon Dioxide 28 mmol/L Normal 22-32 Anion Gap 7 mmol/L Normal 2-11 Calcium 9.5 mg/dL Normal 8.6-10.3 Albumin 4.1 g/dL Normal 3.2-5.2 Total Bilirubin 0.50 mg/dL Normal 0.2-1.0 Glucose 117 mg/dL High 70-100 Blood Urea Nitrogen 21 mg/dL Normal 6-24 Creatinine 0.93 mg/dL Normal 0.51-0.95 BUN/Creatinine Ratio 22.6 High 8-20 Total Protein 6.4 g/dL Normal 6.4-8.9 Globulin 2.3 g/dL Normal 2-4 Albumin/Globulin Ratio 1.8 Normal 1-3 Alkaline Phosphatase 80 U/L Normal 34-104 Alt 21 U/L Normal 7-52 Ast 19 U/L Normal 13-39 Egfr Non- 58.5 >60 Egfr 70.7 >60 1 Laboratory test 05/12/2019 [facility] Hemoglobin A1c 6.3 % High 4.0-5.[address] (Glyco HGB) [place] [address] [phone] Lipid Profile 05/12/2019 [facility] Triglycerides 202 3 (Trig/Chol/HDL) [address] mg/[place] [address] [phone] Cholesterol 139 mg/dL 4 HDL Cholesterol 45.6 mg/dL 5 LDL Cholesterol 53 mg/dL 6 Creat, Ur Random 01/29/2019 N2N/CCD Import Creat, Ur Random 100 _ Microalb/CR Ratio 01/29/2019 N2N/CCD Import Microalb/CR Ratio <30 Microalbumin, Ur 01/29/2019 N2N/CCD Import Microalbumin, Ur 10 _ Microalbumin 01/29/2019 N2N/CCD Import Microalbumin Normal Interpretation Interpretation Mily 01/29/2019 N2N/CCD Import Mily 01/29/19 1 Because ethnic data is not always readily available, this report includes an eGFR for both -Americans and non- Americans. The National Kidney Disease Education Program (NKDEP) does not endorse the use of the MDRD equation for patients that are not between the ages of 18 and 70, are , have extremes of body size, muscle mass, or nutritional status, or are non- or non-. According to the National Kidney Foundation, irrespective of diagnosis, the stage of the disease is based on the level of kidney function: Stage Description GFR(mL/min/1.73 m(2)) 1 Kidney damage with normal or decreased GFR 90 2 Kidney damage with mild decrease in GFR 60-89 3 Moderate decrease in GFR 30-59 4 Severe decrease in GFR 15-29 5 Kidney failure <15 (or dialysis) 2 Therapeutic target for the treatment of diabetes mellitus patients is <7% HBA1C, and in selective patients <6.0%. Please refer to [place] [employer] diabetic care guidelines for further information. 3 Desirable: <150 Borderline High: 150-199 High: 200-499 Very High: >500 4 Desirable: <200 Borderline High: 200-239 High: >239 5 Low: <40 Desirable: 40-60 High: >60 6 Desirable: <100 Near Optimal: 100-129 Borderline High: 130-159 High: 160-189 Very High: >189 Procedures Date Code Description Status 05/07/2019 89299 Electrocardiogram Complete Completed Medical Devices Description No Information Available Encounters Type Date Location Provider Dx Diagnosis Office Visit 05/07/2019 [facility] Neno Pack MD Z01.818 Encounter for other 3:45p [...] Description No Information Available Referrals Refer to Dr Reason for Referral Status Appt Date Dianna Boswell Preop for L hand surgery, general anesthesia, EKG Sent with poss inferior infarct Surgery scheduled for May 18 but will likely be rescheduled bc not urgent [address], [place] [address] [phone]
[2019-06-12 08:15] VITALS: BP 145/83
--- NOTE | 2019-06-12 08:27 | UC ---
Respiratory Complaint HPI - HPI Summary HPI Summary: started coughing 4-5 day sago, fever 100.9, responded well to Tylenol. yesterday started coughing worse, dry cough, bernal chest, no phlegm but feeling fatigued, lack of sleep - History of Current Complaint Chief Complaint: UCGeneralIllness Stated Complaint: URI Time Seen by Provider: 06/12/19 08:04 Hx Obtained From: Patient Hx Last Menstrual Period: na Onset/Duration: Gradual Onset Severity Initially: Mild Severity Currently: Mild Pain Intensity: 0 Character: Cough: Nonproductive Associated Signs And Symptoms: Positive: Fever. Negative: Chills, Hemoptysis - Allergies/Home Medications Allergies/Adverse Reactions: Allergies Allergy/AdvReac Type Severity Reaction Status Date / Time Sulfa (Sulfonamide Allergy Hives Verified 05/10/19 08:21 Antibiotics) Home Medications: Home Medications Albuterol HFA INHALER* [Ventolin HFA Inhaler*] 2 puff INH Q4HR PRN 06/12/19 [ History Confirmed 06/12/19] PMH/Surg Hx/FS Hx/Imm Hx Previously Healthy: Yes Respiratory History: Asthma - Surgical History Surgical History: Yes Surgery Procedure, Year, and Place: lump from Lt breast - BENIGN; arm & back cyst/skin lesion removed (benign); D&C. CATARACTS - Family History Known Family History: Positive: None, Hypertension, Diabetes - Social History Occupation: Retired Lives: With Family Alcohol Use: None Substance Use Type: None Smoking Status (MU): Never Smoked Tobacco Have You Smoked in the Last Year: No Review of Systems All Other Systems Reviewed And Are Negative: Yes Constitutional: Positive: Fever Skin: Positive: Negative. Negative: Rash Respiratory: Positive: Cough. Negative: Shortness Of Breath Cardiovascular: Positive: Negative Musculoskeletal: Positive: Negative Neurological: Positive: Negative Psychological: Positive: Negative Is Patient Immunocompromised?: No Physical Exam Triage Information Reviewed: Yes Appearance: Well-Appearing, No Pain Distress, Well-Nourished Vital Signs: Initial Vital Signs Temp 97.9 F 06/12/19 08:07 Pulse 72 06/12/19 08:07 Resp 18 06/12/19 08:07 BP 145/83 06/12/19 08:07 Pulse Ox 98 06/12/19 08:07 Vital Signs Reviewed: Yes Respiratory Exam: Normal Respiratory: Positive: Lungs clear - persistent dry deep cough Cardiovascular Exam: Normal Musculoskeletal Exam: Normal Neurological Exam: Normal Neurological: Positive: Alert Psychological Exam: Normal Skin Exam: Normal Respiratory Course/Dx - Differential Dx/Diagnosis Differential Diagnosis/HQI/PQRI: Asthma, Bronchitis, Influenza, Lower Resp Infection Provider Diagnosis: Bronchitis Discharge ED - Sign-Out/Discharge Documenting (check all that apply): Patient Departure All imaging exams completed and their final reports reviewed: No Studies - Discharge Plan Condition: Good Disposition: HOME Prescriptions: Azithromycin TAB* [Zithromax TAB (Z-DORYS) 250 mg #6 tabs] 2 tab PO .TODAY, THEN 1 DAILY #1 dorys guaiFENesin/CODIENE 100mg/10mg [Robitussin AC 100Mg/10Mg in 5 ml] 10 ml PO Q6H PRN #240 ml MDD 40ml PRN Reason: Cough Patient Education Materials: Acute Bronchitis (ED) Referrals: Magali Granda MD [Primary Care Provider] - 2 Days (if not better also to recheck blood pressure) Additional Instructions: Drink plenty of fluids and rest start antibiotic and cough syrup today and take as prescribed return if you experience shortness of breath or chest pain - Billing Disposition and Condition Condition: GOOD Disposition: Home - Attestation Statements Provider Attestation: I was available for consult. This patient was seen by the MARIANNE. The patient was not presented to, seen by, or examined by me. -Chad
== END 2019-06-12 08:44 | disposition home or self-care (01) ==
LOC: UCEAST 08:00
DX: J40 Bronchitis, not specified as acute or chronic (principal); J45.909 Unspecified asthma, uncomplicated; Z88.2 Allergy status to sulfonamides; Z79.899 Other long term (current) drug therapy
CPT/HCPCS: 99212; G0463

== ENCOUNTER 2019-06-19 11:39 | Emergency (ER) | payer MEDICARE, OTHER ==
--- OUTSIDE RECORDS SUMMARY | 2019-06-19 11:48 | XMS REPORT | Continuity of Care Document ---
:1940 External Reference #:[id number] Author Name Romie Pack MD Address [address] [place] [address] Problems Active Problems Provider Date Impaired fasting [...] Comments Sex Unknown Tobacco Use Start: Unknown Patient has never smoked Smoking Status Reviewed: 06/14/19 Patient has never smoked Allergies, Adverse Reactions, Alerts Active Allergies Reaction Severity Comments Date Sulfa No Reaction Indicated 02/19/2019 Medications Active Medications SIG Qnty Indications Ordering Date Provider Guaifenesin-Codeine 10 milliliters by Unknown 06/12/2019 mouth three times 100-10mg/5ML Syrup a day Atorvastatin 1 daily oral 90tabs BOBBY Omer 01/29/2019 Calcium 20mg Tablets Proair HFA 2 puffs every 6 8.5units Magali Wineholt, 02/17/2018 hours inhalation 108(90Base) mcg/Act Aerosol Amlodipine Besylate 1 daily oral 90tabs Magali Wineholt, 02/17/2018 2.5mg Tablets Flovent HFA 2 puffs twice 10.6units Magali Wineholt, 02/17/2018 daily inhalation 44mcg/Act Aerosol Lisinopril-Hydrochl 1 daily oral 90tabs Magali Wineholt, 02/17/2018 orothiazide MD 20-12.5mg Tablets Glucosamine 1 twice each day 60caps Magali Myersnu, 01/26/2018 500mg oral MD Capsules Zithromax Z-Srinivasan take 2 tabs by Unknown mouth on the first 250mg Tablets day then 1 tab by mouth for the next 4 days Medications Administered in Office Medication SIG Qnty Indications Ordering Provider Date TB Intradermal Test Unknown 02/02/2018 Injection Immunizations CPT Code Status Date Vaccine Lot # [id number] Given 03/19/2019 Flu High Dose [id number] 04713 Given 03/30/2018 Influenza Virus Vaccine, Quadrivalent, Split, Im Use 0.25ML 17436 Given 03/30/2018 Influenza Virus Vaccine, Quadrivalent, Split, Im Use 0.25ML 31304 Given 03/30/2018 Influenza Virus Vaccine, Quadrivalent, Split, Im Use 0.25ML 46478 Given 03/30/2018 Flu < 65 years 04951 Given 03/30/2018 Influenza Virus Vaccine, Quadrivalent, Split, Preservative Free 99232 Given 03/30/2018 Flumist 94815 Given 03/30/2018 Flu High Dose 78637 Given 03/30/2018 Influenza Virus Vaccine, Split, Preserv Free, Intradermal Use 48988 Given 08/06/2017 Tdap - Boostrix/Adacel 17611 Given 08/06/2017 Tdap - Boostrix/Adacel 18902 Given 08/06/2017 Tdap - Boostrix/Adacel 45534 Given 05/27/2016 Influenza Virus Vaccine, Split, Preserv Free, Intradermal Use 27502 Given 05/27/2016 Flu High Dose 15708 Given 05/27/2016 Flumist 15353 Given 05/27/2016 Influenza Virus Vaccine, Quadrivalent, Split, Preservative Free 73031 Given 05/27/2016 Flu < 65 years 94042 Given 05/27/2016 Influenza Virus Vaccine, Quadrivalent, Split, Im Use 0.25ML 90481 Given 05/27/2016 Influenza Virus Vaccine, Quadrivalent, Split, Im Use 0.25ML 53680 Given 05/27/2016 Influenza Virus Vaccine, Quadrivalent, Split, Im Use 0.25ML 70819 Given 12/07/2015 Prevnar 13 27802 Given 10/17/2014 Pneumovax - for >=2years - [id number] 42883 Given 03/10/2014 Influenza Virus Vaccine, Split, Preserv Free, Intradermal Use 79924 Given 03/10/2014 Flu High Dose 56686 Given 03/10/2014 Flumist 43627 Given 03/10/2014 Influenza Virus Vaccine, Quadrivalent, Split, Preservative Free 43014 Given 03/10/2014 Flu < 65 years 67519 Given 03/10/2014 Influenza Virus Vaccine, Quadrivalent, Split, Im Use 0.25ML 44108 Given 03/10/2014 Influenza Virus Vaccine, Quadrivalent, Split, Im Use 0.25ML 00615 Given 03/10/2014 Influenza Virus Vaccine, Quadrivalent, Split, Im Use 0.25ML 71114 Given 04/03/2010 Influenza Virus Vaccine, Quadrivalent, Split, Im Use 0.25ML 02995 Given 04/03/2010 Influenza Virus Vaccine, Quadrivalent, Split, Im Use 0.25ML 58516 Given 04/03/2010 Influenza Virus Vaccine, Quadrivalent, Split, Im Use 0.25ML 80680 Given 04/03/2010 Flu < 65 years 60247 Given 04/03/2010 Influenza Virus Vaccine, Quadrivalent, Split, Preservative Free 26215 Given 04/03/2010 Flumist 67859 Given 04/03/2010 Flu High Dose 75215 Given 04/03/2010 Influenza Virus Vaccine, Split, Preserv Free, Intradermal Use 67793 Given 07/22/2007 Pneumovax - for >=2years - [id number] Vital Signs Date Vital Result Comment 06/14/2019 1:21pm BP Systolic Recheck 112 mmHg BP Diastolic Recheck 60 mmHg Weight 185.00 lb Heart Rate 65 /min Body Temperature 98.7 F O2 % BldC Oximetry 94 % 05/07/2019 3:58pm Height 66.75 inches 5'6.75" Weight 190.00 lb Heart Rate 84 /min Body Temperature 98.2 F O2 % BldC Oximetry 97 % BMI (Body Mass Index) 30.0 kg/m2 Results Test Acquired Date Facility Test Result H/L Range Note CBC Auto 05/12/2019 [facility] White Blood 6.2 10^3/uL Normal 3.5-10.[address] [place] [address] [phone] Red Blood Count 4.41 10^6/uL Normal 3.70-4.87 [...] Blood Cells % 0.0 Comp Metabolic 05/12/2019 [facility] Sodium 141 mmol/L Normal 135-[address] [place] [address] [phone] Potassium 4.3 mmol/L Normal 3.5-5.0 Chloride 106 [...] Egfr 70.7 >60 1 Laboratory test 05/12/2019 [facility] Hemoglobin A1c 6.3 % High 4.0-5.[address] (Glyco HGB) [place] [address] [phone] Lipid Profile 05/12/2019 [facility] Triglycerides 202 3 (Trig/Chol/HDL) [address] mg/[place] [address] [phone] Cholesterol 139 mg/dL 4 HDL Cholesterol 45.6 [...] in selective patients <6.0%. Please refer to [place] [employer] diabetic care guidelines for further information. 3 Desirable: <150 Borderline High: 150-199 High: 200-499 Very High: >500 4 Desirable: <200 Borderline High: 200-239 High: >239 5 Low: <40 Desirable: 40-60 High: >60 6 Desirable: <100 Near Optimal: 100-129 Borderline High: 130-159 High: 160-189 Very High: >189 Procedures Date Code Description Status 05/07/2019 52490 Electrocardiogram Complete Completed Medical Devices Description No Information Available Encounters Type Date Location Provider Dx Diagnosis Office Visit 06/14/2019 [facility] Neno Pack MD R05 Cough 1:30p Office Visit 05/07/2019 [facility] Neno Pack MD Z01.818 Encounter for other 3:45p preprocedural examination M79.642 Pain in left hand R94.31 Abnormal electrocardiogram [ECG] [EKG] Assessments Date Code Description Provider 06/14/2019 R05 Cough Romie Pack MD 05/07/2019 Z01.818 Encounter for other preprocedural examination [...] will likely be rescheduled bc not urgent [address], [place] [phone]
[2019-06-19 12:17] VITALS: BP 122/66
--- NOTE | 2019-06-19 12:37 | UC ---
Respiratory Complaint HPI - HPI Summary HPI Summary: Patient's a 78 female with a history of chronic bronchitis for which she takes Proventil and Flovent as needed. Patient states for 10 days she's had a progressive cough. Patient is a last 3-4 days it's been much worse. Patient states she wakes up at night wheezing. She can't good air. Patient is a Proventil once last night with no improvement. Patient has not taken any over- the-counter cough or cold medication. Patient denies fevers or chills, but does report increased fatigue. Patient denies any abdominal pain. No nausea or vomiting. Patient states she has not had much appetite. Patient to get the flu vaccine this year. Patient does not smoke cigarettes. Patient's medications as listed in the EMR reviewed this visit. - History of Current Complaint Chief Complaint: UCRespiratory Stated Complaint: COUGH CONGESTION Time Seen by Provider: 06/19/19 12:33 Hx Obtained From: Patient Hx Last Menstrual Period: na Pain Intensity: 0 - Allergies/Home Medications Allergies/Adverse Reactions: Allergies Allergy/AdvReac Type Severity Reaction Status Date / Time Sulfa (Sulfonamide Allergy Hives Verified 06/19/19 12:17 Antibiotics) PMH/Surg Hx/FS Hx/Imm Hx Previously Healthy: Yes - Surgical History Surgical History: Yes Surgery Procedure, Year, and Place: lump from Lt breast - BENIGN; arm & back cyst/skin lesion removed (benign); D&C. CATARACTS - Family History Known Family History: Positive: None, Hypertension, Diabetes, Non-Contributory - Social History Occupation: Retired - I feel at Lives: Alone Alcohol Use: None Substance Use Type: None Smoking Status (MU): Never Smoked Tobacco Have You Smoked in the Last Year: No Review of Systems All Other Systems Reviewed And Are Negative: Yes Constitutional: Positive: Fatigue Skin: Positive: Negative Eyes: Positive: Negative ENT: Positive: Nasal Discharge, Sinus Congestion Respiratory: Positive: Shortness Of Breath, Cough Cardiovascular: Positive: Negative Gastrointestinal: Positive: Negative Genitourinary: Positive: Negative Physical Exam - Summary Physical Exam Summary: Vital Signs Reviewed: Yes A+Ox3, tired appearing, coarse persistent cough Eyes: Conjunctiva Clear, ABDELRAHMAN. EOM intact and full ENT: Hearing grossly normal TM x 2 clear, nasal congesiton, PND, mmoist, uvula midline, no exudate, no erythema Neck: Positive: Supple Respiratory: Positive: coarse, harsh cough + rhonci RUL + diffuse wheeze sentences interrupted by coughing Cardiovascular: RRR nl s1, s2 no m/r CBT <2 sec abd soft + BS nt/nd no guarding, no distension Musculoskeletal Exam: NUNEZ x 4 without difficulty Strength Intact, ROM Intact Neurological: Positive: Alert, + sensation throughout Psychological: Positive: Normal Response To examiner Skin: Positive: no rash, no ecchymosis Triage Information Reviewed: Yes Vital Signs: Initial Vital Signs Temp 98.8 F 06/19/19 12:15 Pulse 71 06/19/19 12:15 Resp 18 06/19/19 12:15 BP 122/66 06/19/19 12:15 Pulse Ox 96 06/19/19 12:15 Diagnostics - Radiology No standard instances Radiology Interpretation Completed By: ED Physician - Patient Name: ERI SHAH Medical Record#: [id number] Ordering Physician: Jil Melgar MD Acct.#: [id number] : 1940 Age: 78 Sex: F Location: [facility] Exam Date: 06/19/19 1243 ADM Status: REG ER Order Information: CHEST PA & LAT 2 VWS Accession Number: [id number] CPT: 63046 Indication: Cough, right upper lobe rhonchi. 2 views of the chest including dual energy PA views demonstrate no mediastinal shift. Heart is of normal size and configuration. Lung wilkes appear clear. IMPRESSION: No active cardiopulmonary disease is noted. <Electronically signed by Amaya Campos MD in [place]> 06/19/19 1307 Dictated By: Amaya Campos MD Dictated Date/ Time: 06/19/19 1306 Transcribed Date/Time: 06/19/19 1306 Copy to: CC:Jil Melgar MD; Magali Granda MD Imaging - [facility] - [facility] Urgent [facility] Department [address] ) ph ([phone]) ph ([phone]) This report is only to be considered final once signed by the Provider(s) as displayed in the "<Electronically Signed by >" field (s). Absence of a signature indicates the report is in a draft status and still needs to be finalized. In the event this document was created by someone other than the signing Provider, the individual initiating the document will be listed in the "Entered by:" or "Dictated by:" wilkes. 1 of 1 Re-Evaluation - Re-Evaluation First Eval Comment: Pt improved following neb. cxr no pna. will Rx abx. mdi with spacer. pred - hold flovent. secretion precaution. fu with pcp. return precaution Respiratory Course/Dx - Course Course Of Treatment: Patient presents to urgent care for evaluation of persistent cough and congestion over the last 10 days. Patient states the worst last 3 days. Patient does have a history of chronic bronchitis for which she uses albuterol Flovent intermittently. Patient states she was last night with improvement. Patient has not taken cough medication. Patient states she woke at around 2 AM with the cough was able to sleep. Patient states she feels very fatigued with no appetite. On exam vital signs are stable. Patient does have a persistent coarse cough. Patient with expiratory wheezes and rhonchi in the right upper lobe. Patient appears tired. We will check chest x-ray do not and reassess. Patient concurrently with plan. Anticipate will be prescribed antibiotics as well as steroids but with a chest x-ray. - Differential Dx/Diagnosis Provider Diagnosis: Acute bronchitis Discharge ED - Sign-Out/Discharge Documenting (check all that apply): Patient Departure All imaging exams completed and their final reports reviewed: Yes - Discharge Plan Condition: Stable Disposition: HOME Prescriptions: DOXYcycline CAP(*) [DOXYcycline 100MG CAP(*)] 100 mg PO BID #20 cap predniSONE [Prednisone 20 MG TAB] 40 mg PO DAILY #10 tablet Patient Education Materials: Acute Bronchitis (ED) Referrals: Magali Granda MD [Primary Care Provider] - Additional Instructions: -Take antibiotics exactly as prescribed until gone - Take prednisone as prescribed -Use your albuterol puffer - 2 puffs every 4 hours for the next 2 days - then as needed - use your spacer (aerochamber) when you use your inhaler -Stay well hydrated - avoid excess caffeine and all alcohol - eat regular, healthy meals - - humidify the air in the room where you sleep - boil water, run a hot steam shower, vaporizer, cups of water by heat register - okay to take over the counter decongestant and cough medication-- These infections are spread by secretions - do NOT share eating or drinking utensils - clean items you share with other people such as cell phones, computer mouse, TV remote, computer tablets,etc.. Once you have been antibiotics for 2 days, change your toothbrush and your pillowcase. -Contact your doctor to arrange a follow-up appointment this week. Call your doctor, return here or go to the emergency department with any questions or concerns - Billing Disposition and Condition Condition: STABLE Disposition: Home
[2019-06-19] MEDS ORDERED: Albuterol/Ipratropium NEB.SOL* Albuterol 2.5 MG/Ipratropium 0.5 MG 3 ML INH ONE (12:43)
== END 2019-06-19 13:42 | disposition home or self-care (01) ==
LOC: UCEAST 11:39
DX: J20.9 Acute bronchitis, unspecified (principal); R09.89 Other specified symptoms and signs involving the circulatory and respiratory systems; R09.81 Nasal congestion; Z88.2 Allergy status to sulfonamides
CPT/HCPCS: 71046; 99212; A9270-GY; G0463